=== PATIENT | male | born 1980 | race Caucasian/White ===

== ENCOUNTER 2020-05-25 15:30 | Inpatient (IN) | payer BC ==
[2020-05-25 20:11] VITALS: BMI 34.4
[2020-05-25] MEDS ORDERED: METHOCARBAMOL 500 MG TABLET PO PRN (20:47)
[2020-05-25] MEDS ORDERED: MAG HYDROX/AL HYDROX/SIMETH 30 ML UNIT-DOSE CUP PO PRN (20:47)
[2020-05-25] MEDS ORDERED: chlordiazePOXIDE HCL 25 MG CAPSULE PO PRN (20:47)
[2020-05-25] MEDS ORDERED: MAGNESIUM HYDROX 2400MG/30ML ORAL SUSPENSION 30 ML CUP PO PRN (20:47)
[2020-05-25] MEDS ORDERED: ONDANSETRON *ODT* 4 MG TABLET SL PRN (20:47)
[2020-05-25] MEDS ORDERED: BISMUTH SUBSALICYLATE 524 MG/30 ML UD PO PRN (20:47)
[2020-05-25] MEDS ORDERED: ACETAMINOPHEN 325 MG TABLET (FP) PO PRN (20:47)
[2020-05-25] MEDS ORDERED: MENTHOL/PHENOL 1 EACH UD MM PRN (20:47)
[2020-05-25] MEDS ORDERED: MAGNESIUM CITRATE 300 ML BOTTLE PO PRN (20:47)
[2020-05-25] MEDS ORDERED: IBUPROFEN 400 MG TABLET (FP) PO PRN (20:47)
[2020-05-25] MEDS ORDERED: MELATONIN 5 MG TABLETS PO SCH (22:00)
[2020-05-25] MEDS: THIAMINE HCL 100 MG TABLET (FP) PO SCH (22:40)
[2020-05-25] MEDS: chlordiazePOXIDE HCL 25 MG CAPSULE PO SCH (22:54)
[2020-05-26] MEDS ORDERED: chlordiazePOXIDE HCL 25 MG CAPSULE ONE ×2 (06:32→10:32)
[2020-05-26] MEDS: chlordiazePOXIDE HCL 25 MG CAPSULE PO SCH ×4 (06:32→22:15)
[2020-05-26] MEDS ORDERED: PATIENT'S OWN MEDICATION (NON-FORMULARY) (Famotidine 40 MG Tablet) PO SCH (10:00)
[2020-05-26] MEDS ORDERED: PATIENT'S OWN MEDICATION (NON-FORMULARY) (Ascorbate Calcium [Vitamin C] 500 MG Tablet) PO SCH (10:00)
[2020-05-26] MEDS ORDERED: LISINOPRIL 10 MG TABLET ONE (10:33)
[2020-05-26] MEDS: NICOTINE 14 MG/24 HOURS TOPICAL PATCH TD SCH (10:45)
[2020-05-26] MEDS: LISINOPRIL 20 MG TABLET PO SCH (10:45)
[2020-05-26 10:47] LABS: ALBUMIN 3.2 g/dl (3.4-5.0); CALCIUM 8.6 mg/dL (8.5-10.1)
[2020-05-26 10:51] LABS: HEMATOCRIT 36.6 % (35.4-49); HEMOGLOBIN 12.5 GM/dL (11.7-16.9); MCH 30.1 pg (25.7-33.7); MCHC 34.1 g/dl (32.0-35.9); MEAN CELL VOLUME 88.3 fl (80-96); MEAN PLT VOLUME 8.7 fl (7.5-11.1); PLATELET COUNT 240 K/MM3 (134-434); RBC 4.15 M/mm3 (4.00-5.60); WHITE BLOOD COUNT 5.2 K/mm3 (4.0-10.0)
[2020-05-26] MEDS: ASPIRIN 81 MG CHEWABLE TABLETS PO SCH (12:44)
[2020-05-26] MEDS: PRENATAL VITAMINS W/ FOLIC ACID TABLET (FP) PO SCH (12:45)
[2020-05-26] MEDS: ASCORBIC ACID 500 MG TABLET (FP) PO SCH ×2 (15:59→18:43)
[2020-05-26] MEDS: FAMOTIDINE 40 MG TABLET PO SCH ×2 (15:59→18:43)
[2020-05-26] MEDS ORDERED: METHADONE HCL 10 MG TABLET PO ONE (17:15)
[2020-05-26] MEDS ORDERED: METHADONE 160 MG, METHADONE 30 MG PO ONE (18:30)
[2020-05-26] MEDS ORDERED: METHADONE HCL 10 MG TABLET ONE (18:31)
[2020-05-26] MEDS ORDERED: METHADONE HCL 40 MG DISPERSABLE TABLET ONE (18:33)
[2020-05-26] MEDS ORDERED: AMITRIPTYLINE HCL 25 MG TABLET PO SCH (22:00)
[2020-05-26] MEDS: MONTELUKAST NA 10 MG TABLET PO SCH (22:15)
[2020-05-26] MEDS: THIAMINE HCL 100 MG TABLET (FP) PO SCH (22:16)
[2020-05-26] MEDS: MELATONIN 5 MG TABLETS PO SCH (22:18)
[2020-05-26] MEDS: AMITRIPTYLINE HCL 25 MG TABLET PO SCH (23:07)
[2020-05-27] MEDS ORDERED: METHADONE HCL 10 MG TABLET ONE ×2 (04:10→04:12)
[2020-05-27] MEDS ORDERED: METHADONE HCL 40 MG DISPERSABLE TABLET ONE ×2 (04:10→04:12)
[2020-05-27] MEDS: METHADONE 160 MG, METHADONE 30 MG PO SCH (05:18)
[2020-05-27] MEDS: chlordiazePOXIDE HCL 25 MG CAPSULE PO SCH ×4 (05:18→22:21)
[2020-05-27] MEDS ORDERED: METHADONE HCL 10 MG TABLET PO SCH (06:00)
[2020-05-27] MEDS: ACETAMINOPHEN 325 MG TABLET (FP) PO PRN ×2 (06:51→23:02)
[2020-05-27] MEDS: ASCORBIC ACID 500 MG TABLET (FP) PO SCH (10:06)
[2020-05-27] MEDS: FAMOTIDINE 40 MG TABLET PO SCH (10:06)
[2020-05-27] MEDS: ASPIRIN 81 MG CHEWABLE TABLETS PO SCH (10:06)
[2020-05-27] MEDS: LISINOPRIL 20 MG TABLET PO SCH (10:06)
[2020-05-27] MEDS: NICOTINE 14 MG/24 HOURS TOPICAL PATCH TD SCH (10:06)
[2020-05-27] MEDS: PRENATAL VITAMINS W/ FOLIC ACID TABLET (FP) PO SCH (10:07)
[2020-05-27] MEDS: NICOTINE POLACRILEX 2 MG GUM BUC PRN (13:19)
[2020-05-27] MEDS ORDERED: SUVOREXANT 5 MG TABLET PO ONE (22:00)
[2020-05-27] MEDS: MONTELUKAST NA 10 MG TABLET PO SCH (22:21)
[2020-05-27] MEDS: THIAMINE HCL 100 MG TABLET (FP) PO SCH (22:21)
[2020-05-27] MEDS: AMITRIPTYLINE HCL 25 MG TABLET PO SCH (22:22)
[2020-05-27] MEDS: MELATONIN 5 MG TABLETS PO SCH (22:22)
[2020-05-28] MEDS ORDERED: chlordiazePOXIDE HCL 10 MG CAPSULE PO PRN
[2020-05-28] MEDS: NICOTINE POLACRILEX 2 MG GUM BUC PRN (00:28)
[2020-05-28] MEDS ORDERED: METHADONE HCL 10 MG TABLET ONE (05:01)
[2020-05-28] MEDS ORDERED: METHADONE HCL 40 MG DISPERSABLE TABLET ONE (05:01)
[2020-05-28] MEDS: ACETAMINOPHEN 325 MG TABLET (FP) PO PRN ×2 (05:24→12:45)
[2020-05-28] MEDS: METHADONE 160 MG, METHADONE 30 MG PO SCH (05:24)
[2020-05-28] MEDS: chlordiazePOXIDE HCL 10 MG CAPSULE PO SCH ×4 (05:50→22:26)
[2020-05-28] MEDS: FAMOTIDINE 20 MG TABLET PO SCH (10:40)
[2020-05-28] MEDS: ASCORBIC ACID 500 MG TABLET (FP) PO SCH (10:41)
[2020-05-28] MEDS: PRENATAL VITAMINS W/ FOLIC ACID TABLET (FP) PO SCH (10:41)
[2020-05-28] MEDS: NICOTINE 14 MG/24 HOURS TOPICAL PATCH TD SCH (10:41)
[2020-05-28] MEDS: ASPIRIN 81 MG CHEWABLE TABLETS PO SCH (10:41)
[2020-05-28] MEDS: LISINOPRIL 20 MG TABLET PO SCH (10:41)
[2020-05-28] MEDS: BENZOCAINE 20 % GEL TUBE MM PRN (21:06)
[2020-05-28] MEDS: MONTELUKAST NA 10 MG TABLET PO SCH (22:26)
[2020-05-28] MEDS: MELATONIN 5 MG TABLETS PO SCH (22:27)
[2020-05-28] MEDS: AMITRIPTYLINE HCL 25 MG TABLET PO SCH (22:27)
[2020-05-28] MEDS: THIAMINE HCL 100 MG TABLET (FP) PO SCH (22:27)
[2020-05-29] MEDS: BENZOCAINE 20 % GEL TUBE MM PRN ×3 (03:33→22:48)
[2020-05-29] MEDS: METHADONE 160 MG, METHADONE 30 MG PO SCH (05:26)
[2020-05-29] MEDS: chlordiazePOXIDE HCL 10 MG CAPSULE PO SCH ×2 (05:26→19:00)
[2020-05-29] MEDS ORDERED: METHADONE HCL 40 MG DISPERSABLE TABLET ONE (05:26)
[2020-05-29] MEDS ORDERED: METHADONE HCL 10 MG TABLET ONE (05:26)
[2020-05-29] MEDS: LISINOPRIL 20 MG TABLET PO SCH (10:28)
[2020-05-29] MEDS: PRENATAL VITAMINS W/ FOLIC ACID TABLET (FP) PO SCH (10:28)
[2020-05-29] MEDS: ASPIRIN 81 MG CHEWABLE TABLETS PO SCH (10:28)
[2020-05-29] MEDS: NICOTINE 14 MG/24 HOURS TOPICAL PATCH TD SCH (10:29)
[2020-05-29] MEDS: FAMOTIDINE 20 MG TABLET PO SCH (10:29)
[2020-05-29] MEDS: ASCORBIC ACID 500 MG TABLET (FP) PO SCH (10:29)
[2020-05-29] MEDS: MONTELUKAST NA 10 MG TABLET PO SCH (22:47)
[2020-05-29] MEDS: MELATONIN 5 MG TABLETS PO SCH (22:47)
[2020-05-29] MEDS: AMITRIPTYLINE HCL 25 MG TABLET PO SCH (22:47)
[2020-05-29] MEDS: THIAMINE HCL 100 MG TABLET (FP) PO SCH (22:48)
[2020-05-29] MEDS: ACETAMINOPHEN 325 MG TABLET (FP) PO PRN (22:49)
[2020-05-30] MEDS ORDERED: METHADONE HCL 10 MG TABLET ONE (03:49)
[2020-05-30] MEDS ORDERED: METHADONE HCL 40 MG DISPERSABLE TABLET ONE (03:49)
[2020-05-30] MEDS: METHADONE 160 MG, METHADONE 30 MG PO SCH ×2 (05:20→07:32)
[2020-05-30] MEDS: chlordiazePOXIDE HCL 10 MG CAPSULE PO ONE ×2 (05:20→07:33)
[2020-05-30 09:28] VITALS: BP 98/70; PULSE 105; TEMP 97.5
[2020-05-30] MEDS: PRENATAL VITAMINS W/ FOLIC ACID TABLET (FP) PO SCH (09:29)
[2020-05-30] MEDS: ASPIRIN 81 MG CHEWABLE TABLETS PO SCH (09:29)
[2020-05-30] MEDS: ASCORBIC ACID 500 MG TABLET (FP) PO SCH (09:29)
[2020-05-30] MEDS: NICOTINE 14 MG/24 HOURS TOPICAL PATCH TD SCH (09:30)
[2020-05-30] MEDS: LISINOPRIL 20 MG TABLET PO SCH (09:30)
[2020-05-30] MEDS: FAMOTIDINE 20 MG TABLET PO SCH (09:30)
== END 2020-05-30 10:48 | disposition home or self-care (01) | DRG 773 ==
LOC: YASAS 15:30 → Y6N 05-26 11:34
PROVIDERS: ADMIT Allergy & Immunology; ATTEND Allergy & Immunology
PROC: HZ2ZZZZ Detoxification Services for Substance Abuse Treatment (ICD-10-PCS; principal; 2020-05-26)
DX: F10.230 Alcohol dependence with withdrawal, uncomplicated (principal); F11.20 Opioid dependence, uncomplicated; F14.20 Cocaine dependence, uncomplicated; F17.210 Nicotine dependence, cigarettes, uncomplicated; F33.9 Major depressive disorder, recurrent, unspecified; F19.282 Other psychoactive substance dependence with psychoactive substance-induced sleep disorder; J45.20 Mild intermittent asthma, uncomplicated; M54.5 Low back pain; G89.29 Other chronic pain; K21.9 Gastro-esophageal reflux disease without esophagitis; G47.30 Sleep apnea, unspecified; L30.9 Dermatitis, unspecified; L40.52 Psoriatic arthritis mutilans; E66.01 Morbid (severe) obesity due to excess calories; Z68.34 Body mass index [BMI] 34.0-34.9, adult
CPT/HCPCS: 36415; 80053; 85027; 86780; 93005; 93010; C9803; U0003